=== PATIENT | female | born 1955 | race Caucasian/White ===

== ENCOUNTER 2017-03-15 16:14 | Outpatient (CLI) | payer OTHER, BC | END 2017-03-15 20:14 | disposition home or self-care (01) | LOC: SRD 16:14 | PROVIDERS: ATTEND Internal Medicine | DX: M19.072 Primary osteoarthritis, left ankle and foot (principal); M77.32 Calcaneal spur, left foot; I70.90 Unspecified atherosclerosis; M79.89 Other specified soft tissue disorders ==